=== PATIENT | male | born 1995 ===

== ENCOUNTER 2023-07-27 11:29 | Outpatient (AMB) | payer BC, SELFPAY ==
[2023-07-27 13:07] VITALS: BP 130/78; PULSE 76; TEMP 36.8; O2SAT 97; BMI 25.8
--- NOTE | 2023-07-27 13:07 | MHC.OFFWIV ---
Intake Vital Signs 07/27/23 13:07 Height 6 ft Weight 86.296 kg BMI 25.8 BP 130/78 Blood Pressure Location Lt brachial Position Sitting Pulse 76 Pulse Source Pulse Oximeter Temp 98.2 F Temp Source Temporal Artery Scan Pulse Oximetry (%) 97 Intake Visit Reasons: [employer] Lower back spasm/pain Intake Note: pt is here for c/o lower back back pain w/ spasms Patient Tobacco Use Status: Never used Tobacco Allergies No Known Allergies [No Known Allergies*] Allergy (Verified 07/27/23 13:08) Do you need a note to return to daycare/school/sports/work: Yes HPI HPI Comments History of Present Illness Details 1328 27-year-old male presents with atraumatic lower back pain worsening over the past few months, acutely worse this morning after waking up. Unsure if he hurt it while moving heavy things or playing basketball. He is followed by chiropractor last saw them earlier this week. Pain is worse when sitting down or lying down and better with ambulation. It is localized to the lower region bilaterally. Has not had pain like this before. Denies urinary/bowel incontinence/retention, numbness, tingling, changes in bowel habits in urinary habits. + bilateral lumbar paraspinous muscle spasms and tenderness throughout R>L This is likely lumbago versus lumbar paraspinous muscle spasms versus lumbar sprain or strain. Unlikely cauda equina, epidural abscess, cord compression. Other differentials include herniated disc, spinal stenosis Plan Toradol ( I gave 30 mg IM here in the left bicep tolerated well) , cyclobenzaprine, and patch. Educated patient on diagnosis and treatment plan, answered all question, patient verbalizes understanding. At this time patient will be discharged home, advised to return with new or worsening symptoms. Educated on worrisome signs and symptoms and when to return. At this time I feel comfortable discharge home. [facility] Social History Patient Tobacco Use Status: Never used Tobacco Review of Systems Const Details: Constitutional : No Weight loss, No Fever, No Chills, ENT/Mouth : No Hearing loss, No Ear Pain, No Nasal Congestion, No Sinus Pain, No Hoarseness, No sore throat, No Rhinorrhea, No Swallowing Difficulty Cardiovascular : No Chest Pain, No SOB Respiratory : No Cough, No Dyspnea Gastrointestinal : No Nausea, No Vomiting, No Diarrhea, No abdominal Pain, No Hematochezia, No Melena Genitourinary : No Dysuria, No Urinary Frequency, No Hematuria, No Urinary Incontinence, Musculoskeletal : positive back pain Skin : No Skin Lesions, No rash Neuro : No Weakness, No Numbness, No Paresthesias, no loss of bowel or bladder incontinence, no saddle anesthesia All systems reviewed & are unremarkable except as noted in HPI and below Physical Exam Vital Signs: vss Appearance: Alert.? Oriented X3.? No acute distress.? Head: Normocephalic, atraumatic, no step-offs or deformities Eyes: Pupils equal, round and reactive to light.? CVS: Normal heart rate and rhythm.? Pulses normal.? Respiratory: No respiratory distress.? Breath sounds normal.? Abdomen: Soft and nontender.? Skin: Skin warm and dry.? Normal skin color.? Normal skin turgor.? Extremities: No lower extremity edema.? No calf ttp. 5/5 strength to bilateral upper and lower extremities Back: No midline tenderness, no C-spine tenderness, full range of motion, no CVA tenderness bilaterally + bilateral lumbar paraspinous muscle spasms and tenderness throughout lumbar region R>L + straight leg raise on the right Neuro: Oriented X 3.? No motor deficit.? No sensory deficit. CN 2-12 intact . No saddle paresthesias. Ambulating appears uncomfortable slow gait. Assessment & Plan Assessment & Plan (1) Lumbar back pain: Code(s): M54.50 - Low back pain, unspecified Plan Take your medications as prescribed. If you were prescribed antibiotics today, it is important that you take your medication to their entirety, do not skip any doses, do not finish them early. Follow-up with your primary care provider this week. Return to the emergency department with new or worsening symptoms. Such as fevers, chills, chest pain, shortness of breath, nausea, vomiting, dizziness, headache, vision changes, lethargy In case of emergency call 911 Orders: Orders AMB Ketorolac Injection Today M54.50 - Low back pain, unspecified Medications: New lidocaine 4% (AsperFlex (lidocaine)) 1 patch topical DAILY PRN 15 ea 0RF pain ketorolac 10 mg PO Q8H PRN 15 tabs 0RF pain prednisone 40 mg (2 x 20 mg) PO DAILY 5 days 10 tabs 0RF ketorolac 30 mg IM ONCE 1 mL 0RF M54.50 - Low back pain, unspecified Coding Level of Care Code Est Pt Level 3 (81087) Diagnoses Lumbar back pain M54.50
== END 2023-07-27 13:35 | disposition home or self-care (01) ==
PROVIDERS: Visit Provider Physician Assistant
DX: M54.50 Low back pain, unspecified (principal)
CPT/HCPCS: 99213

== ENCOUNTER 2023-07-27 13:35 | Outpatient (REF) | payer BC, SELFPAY ==
--- NOTE | ~2023-07-27 | XR_ITS ---
EXAMINATION: XR LUMBOSACRAL SPINE CLINICAL INFORMATION: Low back pain COMPARISON: None available. TECHNIQUE: Three views of the lumbosacral spine. FINDINGS: The vertebral bodies and posterior elements are normal. There is mild narrowing cough L4-L5 intervertebral disc space and L5-S1 as well. The rest of disc spaces are preserved and the vertebral alignment is normal. The paraspinal soft tissues are normal. XR/XR lumbar spine 2-3V IMPRESSION: Narrowing cough L4-L5 and L5-S1 intervertebral disc spaces.
== END 2023-07-27 13:36 | disposition home or self-care (01) ==
LOC: HO.HMGCX 13:35
PROVIDERS: Visit Provider Physician Assistant
DX: M54.50 Low back pain, unspecified (principal)
CPT/HCPCS: 72100

== ENCOUNTER 2023-08-10 09:19 | Outpatient (AMB) | payer BC, SELFPAY ==
--- NOTE | 2023-08-10 09:00 | A.OFFPC_ITS ---
Vital Signs 08/10/23 09:01 Height 6 ft Weight 195 lb BMI 26.4 BP 124/86 Blood Pressure Location Rt brachial Position Sitting Pulse 75 Pulse Source Pulse Oximeter Pulse Oximetry (%) 98 Oxygen Delivery Method Room Air Intake Visit Reasons: Est Care/Back pain/Requesting Annual PE Intake Note: Pt is here today to est care/back pain and request PE Allergies No Known Allergies [No Known Allergies*] Allergy (Verified 08/10/23 09:02) Tobacco use date assessed: 08/10/23 Dental Screening Dental Screen Date: 08/10/23 Did you have a dental visit in the last 12 months?: Yes Did you have a dental problem in the last 6 months where you did not have access to dental care?: No Was dental information given to patient?: Patient has dentist HPI HPI Comments History of Present Illness Details Patient is a 27-year-old male here to establish care. He has a chief c omplaint of intermittent right lower back pain x3 months. He was seen in our walk-in clinic 2 weeks prior to this appointment for the same issue, where she was given a an x-ray which demonstrated possible trough narrowing. He states that the intensity of the pain changes based on whether he is standing still, sitting or moving. He has been using [id number] Motrin with some relief. He states that he feels the intermittent pain radiating down his right buttock and testicle. Denies nausea and vomiting, dizziness, recent fevers, dysuria or saddle numbness. He states that he has not had a primary care doctor and several years, and is motivated to stay in good health. [facility] Medical History (Updated 08/10/23 @ 11:02 by YANG Marcial) Encounter for routine adult physical exam with abnormal findings Lumbar back pain with radiculopathy affecting right lower extremity Family History (Updated 08/10/23 @ 09:05 by Kelle Obrien CMA) Father Substance use disorder Mother Substance use disorder Maternal Aunt Substance use disorder Maternal Uncle Substance use disorder Paternal Aunt Substance use disorder Paternal Uncle Substance use disorder Social History (Updated 08/10/23 @ 10:19 by YANG Marcial) Housing: House Patient Tobacco Use Status: Never used Tobacco e-Cigarette/Vaping Use: Never Used Substance Use Type: Marijuana service: No Current occupational status: employed Cognitive needs: No Hearing needs: No Vision needs: No Questionnaire PHQ-9 Over the last 2 weeks, how often have you been bothered by any of the following problems? 1. Little interest or pleasure in doing things: not at all 2. Feeling down, depressed, or hopeless: not at all 3. Trouble falling or staying asleep, or sleeping too much: not at all 4. Feeling tired or having little energy: not at all 5. Poor appetite or overeating: not at all 6. Feeling bad about yourself - or that you are a failure or have let yourself or your family down: not at all 7. Trouble concentrating on things, such as reading the newspaper or watching television: not at all 8. Moving or speaking so slowly that other people could have noticed. Or the opposite - being so fidgety or restless that you have been moving around a lot more than usual: not at all 9. Thoughts that you would be better off or of hurting yourself in some way: not at all Total score: 0 Depression Screening Interpretation: Negative Depression Screening Done: Yes 31442 - PHQ-9 Billing: Yes Source: Developed by Drs. Manjinder Macedo, Sidra Vick, Armani Miller and colleagues, with an educational fabian from [employer]. AUDIT C Alcohol Use Questionnaire (AUDIT-C) 1. How often do you have a drink containing alcohol?: Monthly or less 2. How many drinks containing alcohol do you have on a typical day when you are drinking?: 1 or 2 3. How often do you have six or more drinks on one occasion?: Never Total Score: 1 HILARIA-7 AMB Questionnaire HILARIA-7 Feeling nervous, anxious, or on edge: 0 = Not at all Not being able to stop or control worryin = Not at all Worrying too much about different things: 0 = Not at all Trouble relaxin = Not at all Being so restless that it is hard to sit still: 0 = Not at all Becoming easily annoyed or irritable: 0 = Not at all Feeling afraid as if something awful might happen: 0 = Not at all Total HILARIA-7 score (0-4 normal; 5-9 mild; 10-14 moderate; 15-21 severe): 0 Source: Developed by Drs. Manjinder Macedo, Sidra Vick, Armani Miller and colleagues, with an educational fabian from [employer]. HILARIA-7 Assessment Billing HILARIA-7 Assessment Tool: HILARIA-7 Assessment 96276 Review of Systems Const Details: Constitutional : No Weight loss, No Fever, No Chills, No Fatigue, No Malaise ENT/Mouth : No sore throat, No Rhinorrhea Eyes: No Eye Pain, No Swelling, No Redness Cardiovascular : No Chest Pain, No SOB, No Dyspnea on Exertion, No Orthopnea, No Edema, No Palpitations Respiratory : No Cough, No Sputum, No Wheezing Gastrointestinal : No Nausea, No Vomiting, No Diarrhea, No Constipation, No abdominal Pain, No Hematochezia, No Melena Genitourinary : No Dysuria, No Urinary Frequency, No Hematuria. Reports intermittent right testicle pain. Musculoskeletal : Reports intermittent lower back pain that radiates down buttocks and testicle. Skin : No Skin Lesions, No rash Neuro : No Weakness, No Numbness, No Dizziness, No Headache Psych : No Anxiety/Panic, No Depression Heme/Lymph: No Bruising, No Bleeding,No Lymphadenopathy Endocrine : No Polyuria, No Polydipsia All other systems reviewed and are negative Physical exam (Primary Care) Vital Signs: Last Vital Signs Pulse 75 08/10/23 09:01 BP 124/86 08/10/23 09:01 Pulse Ox 98 08/10/23 09:01 Oxygen Delivery Method Room Air 08/10/23 09:01 Care Plan Goal for BP management: Vitals have been reviewed and are stable BMI result Body Mass Index 26.4 Tobacco/Smoking Status: Tobacco use Status Tobacco use date assessed 08/10/23 08/10/23 09:03 Patient Tobacco Use Status Never used Tobacco 08/10/23 09:01 e-Cigarette/Vaping Use Never Used 08/10/23 09:03 Depression Screening Interpretation: Negative Const General: cooperative, healthy appearing and no acute distress Orientation/consciousness: patient oriented x3 Limitations: no limitations HENMT Head: Yes normal to inspection and Yes normocephalic Ears: TM normal on the left and other (Impacted cerumen in the right ear) General nose exam: Normal external nose present Face and sinus: Yes sinuses nontender and Yes face symmetric Mouth: Normal oral and palatal mucosa present Eyes General: appearance normal, both eyes and all related structures Direct Ophthalmoscopy: normal light reflex and no photophobia Neck Neck: Yes normal visual inspection and Yes no lymphadenopathy Chest Chest palpation & inspection: normal inspection of the chest Resp Auscultation: clear to auscultation bilaterally Cardio Rate: regular rate Rhythm: regular rhythm Heart sounds: S1 normal heart sound present and S2 normal heart sound present Peripheral pulses: Peripheral pulses 2+ throughout GI Inspection: Yes normal to inspection Auscultation: normal bowel sounds General: Yes no CVA tenderness Male General Exam: No edema and No erythema Scrotum: cremasteric reflex present, not edematous, not erythematous, no masses, no scrotal swelling and other Back/Spine/Pelvis Back: no CVA tenderness Cervical Spine: normal cervical lordosis Thoracic/Lumbar Spine: straight leg raise positive right at 40 degrees Sacroiliac joints: on the right tender to palpation Skin General skin exam: no rashes or lesions noted Neuro General: patient oriented x3, gait normal and CN's II-XI intact bilaterally Motor exam (neuro): 5/5 motor strength present throughout Psych Affect: normal affect Attitude: cooperative Insight: Good insight present (Psych) Judgement: Good judgement present (Psych) Results Reviewed Results Reviewed: Will call patient with lab results. Assessment and Plan Assessment & Plan (1) Encounter for routine adult physical exam with abnormal findings: Code(s): Z00.01 - Encounter for general adult medical examination with abnormal findings Plan: Will draw CBC, CMP, Lipid profile, TSH, T4, and UA. WIll follow up with results. Patient will have repeat physical in 1 year. (2) Lumbar back pain with radiculopathy affecting right lower extremity: Code(s): M54.16 - Radiculopathy, lumbar region Plan: Patient was seen in the walk-in 2 weeks prior where he had an x-ray of this lumbar. Demonstrated possible narrowing of draw, will order MRI for more detail. Patient has been instructed in the meantime to rest and not participate in any heavy lifting or movement. Will prescribe meloxicam to be taken as directed for lower back pain relief. Depending on MRI results patient will see [facility]. Patient is agreeable to this plan. (3) Right testicular pain: Code(s): N50.811 - Right testicular pain Plan: Patient has intermittent right testicular pain that he notices when he also has back pain. Denies dysuria. Cremasteric reflex was present. Will order ultrasound. Orders: Orders Comprehensive Met. Panel Today Z00.00 - Encounter for general adult medical examination without abnormal findings TSH reflex Free T4 Today Z00.00 - Encounter for general adult medical examination without abnormal findings UA CC w/rflx Micro + Cult Today Z00.00 - Encounter for general adult medical examination without abnormal findings Complete Blood Count Auto Diff Today Z00.00 - Encounter for general adult medical examination without abnormal findings MR lumbar spine wo con Today M54.16 - Radiculopathy, lumbar region Lipid Panel Today Z00.00 - Encounter for general adult medical examination without abnormal findings US scrotum Today N50.819 - Testicular pain, unspecified AMB Cerumen Removal Today H61.21 - Impacted cerumen, right ear Medications: New meloxicam 15 mg PO DAILY 14 tabs 0RF Review Flu Vaccine not done: patient reason Coding Level of Care Code Est Pt Level 4 (99376) Diagnoses Encounter for routine adult physical exam with abnormal findings Z00.01 Lumbar back pain with radiculopathy affecting right lower extremity M54.16 Right testicular pain N50.811 Additional Codes HILARIA-7 Assessment Billing - HILARIA-7 Assessment Tool: HILARIA-7 Assessment [id number] ([id number]) Time Spent (min) 30
[2023-08-10 09:01] VITALS: BP 124/86; PULSE 75; O2SAT 98; BMI 26.4
== END 2023-08-10 11:17 | disposition home or self-care (01) ==
PROVIDERS: PCP Nurse Practitioner Primary Care; Visit Provider Nurse Practitioner Primary Care
DX: Z00.01 Encounter for general adult medical examination with abnormal findings (principal); M54.16 Radiculopathy, lumbar region; N50.811 Right testicular pain
CPT/HCPCS: 99214

== ENCOUNTER 2023-08-10 09:55 | Outpatient (REF) | payer BC, SELFPAY ==
[2023-08-10 13:38] LABS: Appearance Urine Clear; Color Urine Yellow; Glucose Urine UA Negative (Negative); Leukocyte Esterase Urine Negative (Negative); Nitrite Urine Negative (Negative); PH 6.5 (5.0-9.0); Specific Gravity - Urine 1.015 (1.005-1.025); Urine Blood Negative (Negative); Urine Ketones Negative (Negative); Urine Protein Negative (Neg-Trace)
[2023-08-10 13:44] LABS: MANUAL DIFF FLAG NO
[2023-08-10 13:50] LABS: Basophils Percent Auto 0.7 % (0-2); Eosinophils Absolute Auto 0.3 X10*3/uL (0.0-0.4); Eosinophils Percent Auto 5.4 % (0-4); Hematocrit 44.7 % (42.0-52.0); Imm Gran Abs Auto 0.02 X10*3/uL (0.00-0.03); Imm Gran Pct Auto 0.3 % (0.0-0.4); Lymphocytes Percent Auto 32.2 % (20-40); Mean Corpuscular HGB Conc 33.6 g/dl (31.0-36.0); Mean Corpuscular Hemoglobin 30.1 pg (27.0-33.0); Mean Corpuscular Volume 89.8 fL (80.0-98.0); Mean Platelet Volume 11.5 fL (9.4-12.4); Monocytes Absolute Auto 0.6 X10*3/uL (0.1-1.2); Monocytes Percent Auto 9.5 % (2-11); Neutrophils Absolute Auto 3.2 x10*3/uL (2.0-8.3); Neutrophils Percent Auto 51.9 % (45-73); Platelet Count 171 X10*3/uL (160-400); Red Blood Count 4.98 X10*6/uL (4.60-5.80); Red Cell Distribution Width 12.8 % (11.0-16.0); White Blood Count 6.1 X10*3/uL (4.8-10.8)
[2023-08-10 14:21] LABS: Alanine Aminotransferase 63 U/L (0-40); Albumin Level 4.7 g/dL (3.5-5.0); Alkaline Phosphatase 32 U/L (39-117); Anion Gap 11 (12-20); Aspartate Amino Transferase 29 U/L (5-37); Bilirubin Total 0.6 mg/dL (0.0-1.0); Blood Urea Nitrogen 17 mg/dL (9-16); Calcium 9.6 mg/dL (8.4-10.2); Carbon Dioxide 29 mmol/L (22-29); Chloride 105 mmol/L (96-108); Cholesterol 154 mg/dL (<200); Estimated Glomerular Filt Rate > 60; Glucose Random 83 mg/dL (60-115); HDL Cholesterol 54 mg/dL (>40); LDL Cholesterol Calculated 94 mg/dL (<100); Potassium 4.1 mmol/L (3.3-5.1); Sodium 141 mmol/L (135-145); TSH reflex Free T4 1.84 uIU/mL (0.32-4.0); Total Protein 7.5 g/dL (6.5-8.0); Triglycerides 33 mg/dL (<150)
== END 2023-08-10 09:56 | disposition home or self-care (01) ==
LOC: HO.HMGCLDS 09:55
PROVIDERS: PCP Nurse Practitioner Primary Care; Visit Provider Nurse Practitioner Primary Care
DX: Z00.00 Encounter for general adult medical examination without abnormal findings (principal); Z13.29 Encounter for screening for other suspected endocrine disorder; Z13.0 Encounter for screening for diseases of the blood and blood-forming organs and certain disorders involving the immune mechanism; Z13.220 Encounter for screening for lipoid disorders
CPT/HCPCS: 36415; 80053; 80061; 81003; 84443; 85025

== ENCOUNTER 2023-11-09 14:00 | Outpatient (RCR) | payer BC, OTHER, SELFPAY ==
--- NOTE | 2023-09-26 09:40 | MHC.PT.EP ---
[facility] [place] Office [place] Office [place] Office [address] Valentina Shaffer [address] [phone] F: [phone] F: [phone] F: [phone] F: [phone] Physical Therapy Plan of Care Date of Evaluation: 09/26/23 Date of Surgery: Diagnosis: RADICULOPATHY, LUMBAR REGION Assessment: 28 YO [place] [address] EXACERBATION OF HIS LUMBAR REGION RADICULOPATHY AFTER LIFTING OBJECTS AND LANDING HARD WHILE PLAYING BASKETBALL. OF IMPORTANCE, HE APPEARS TO BE COMPENSATING FOR ROM/ STRENGTH DEFICITS LEFT LE W H/O Lt ACL REPAIR 2016 WITH ALL SIMUL FUNCTIONAL TASKS. 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 OBJECTIVE FINDINGS: SOFT TISSUE RESTRICTIONS W DF/ HIP IR AND ER/ ADD; DENIES RADICULAR SXS/ MOTOR DEFICITS, HE HAS DECR TRUNK FLEX, RESIDUAL LUMBOPELVIC AND Lt LE STRENGTH DEFICITS, DECR POSTURAL AWARENESS(SACRAL SITTER AND DECR SQUAT MECH), HYPERLORDOTIC LUMBAR TENDENCIES , AND FLUCTUATING Rt LUMBOSACRAL PAIN. THE Pt IS MOTIVATED FOR PT, DEV HEP, EASING PAIN AND EDEMA, AND MAXIMIZING FUNCTIONAL INDEPENDENCE. THE Pt IS MOTIVATED FOR PT, TO GUIDE HIM IN DEV HEP, EASING PAIN AND SELF PREVENTION/ MGMT TECHN, AND MAXIMIZING FUNCTIONAL INDEPENDENCE WITH REDUCED RISK OF RE-INJURY. 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 Manual therapy to restore motion and function. Therapeutic exercise to improve strength and flexibility. Neuromuscular re-education for posture and balance. Therapeutic activities to return to functional activities of daily living. Electronically signed by: ZI CHRISTINE PT Please sign and return to therapist. Thank you for your referral.
--- NOTE | 2023-12-18 14:37 | MHC.PT.DC ---
[facility] [place] Office [place] Office [place] Office [address] Valentina Shaffer [address] [phone] F: [phone] F: [phone] F: [phone] F: [phone] Physical Therapy Discharge Report Diagnosis: RADICULOPATHY, LUMBAR REGION Date of Surgery: Date of Evaluation: 09/26/23 Date of Discharge: 12/18/23 Treatments to Date: 7 Cancellations to Date: 1 No Shows to Date: 2 Discharge Status: Achieved Goals Improved Function Independent with HEP Discharge Summary: JINNY HAS PROGRESSED NICELY IN PT- HE IS INDEP W HIS HEP AND HIS LBP HAS RELATIVELY RESOLVED- HE IS INDEP W SX MANAGEMENT AND HAS BEEN ABLE TO RESUME HIS REGULAR FITNESS ROUTINE W/O EXACERBATING SXS. JINNY MET HIS PT GOALS AT THIS TIME AND IS D/C W A THOROUGH HEP. Electronically signed by: Rahel Spring,PT Please sign and return to therapist. Thank you for your referral.
== END 2023-12-18 14:38 | disposition home or self-care (01) ==
LOC: HO.PT 14:00
PROVIDERS: PCP Nurse Practitioner Primary Care; Visit Provider Nurse Practitioner Primary Care
DX: M54.16 Radiculopathy, lumbar region (principal)
CPT/HCPCS: 97110; 97140; 97162; 97530

== ENCOUNTER 2024-04-07 13:20 | Outpatient (AMB) | payer BC, SELFPAY ==
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
[2024-04-07 13:34] VITALS: BP 118/80; PULSE 67; O2SAT 98; BMI 25.9
== END 2024-04-07 14:43 | disposition home or self-care (01) ==
PROVIDERS: PCP Nurse Practitioner Primary Care; Visit Provider Nurse Practitioner Primary Care
DX: Z00.00 Encounter for general adult medical examination without abnormal findings (principal); F41.1 Generalized anxiety disorder
CPT/HCPCS: 96127; 99395

== ENCOUNTER 2024-07-03 11:46 | Outpatient (AMB) | payer BC, SELFPAY ==
[2024-07-03 11:51] VITALS: BP 110/70; PULSE 58; O2SAT 98; BMI 24.7
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
== END 2024-07-03 13:47 | disposition home or self-care (01) ==
PROVIDERS: PCP Nurse Practitioner Primary Care; Visit Provider Internal Medicine
DX: F41.1 Generalized anxiety disorder (principal)

== ENCOUNTER → 2024-07-03 11:46 | Outpatient (BNVA) | payer OTHER, SELFPAY | PROVIDERS: PCP Nurse Practitioner Primary Care; Visit Provider Internal Medicine ==

== ENCOUNTER 2024-08-31 13:06 | Emergency (ER) | payer BC, SELFPAY ==
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
[2024-08-31 13:33] VITALS: BP 137/75; PULSE 85; RESP 16; TEMP 37; O2SAT 99; BMI 25.3
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
[2024-08-31 15:58] VITALS: BP 134/78; PULSE 91; RESP 19; TEMP 36.6; O2SAT 99
[2024-08-31 16:09] VITALS: BP 134/78; PULSE 91; RESP 19; TEMP 36.6; O2SAT 99
== END 2024-08-31 16:09 | disposition home or self-care (01) ==
PROVIDERS: Emergency Provider Emergency Medicine Emergency Medical Services
DX: S05.12XA Contusion of eyeball and orbital tissues, left eye, initial encounter (principal); R51.9 Headache, unspecified; Y04.2XXA Assault by strike against or bumped into by another person, initial encounter; Y93.89 Activity, other specified; Y92.89 Other specified places as the place of occurrence of the external cause; Y99.8 Other external cause status
CPT/HCPCS: 70450; 70486; 72125; 99283; 99284

== ENCOUNTER 2024-10-17 08:15 | Outpatient (AMB) | payer BC, SELFPAY ==
--- NOTE | 2024-10-17 08:51 | MHC.OFFWIV ---
Intake Vital Signs 10/17/24 08:58 Height 6 ft Weight 84.822 kg BMI 25.4 BP 122/80 Blood Pressure Location Rt brachial Position Sitting Pulse 66 Pulse Source Pulse Oximeter Temp 97.6 F Temp Source Oral Pulse Oximetry (%) 98 Oxygen Delivery Method Room Air Intake Visit Reasons: EP-?sinus infection, sore throat, running nose Intake Note: Patient here for sinus pressure, runny nose, sore throat in morning and at night which started about 1 week ago. Patient Tobacco Use Status: Never used Tobacco Allergies No Known Allergies [No Known Allergies*] Allergy (Verified 10/17/24 08:59) Do you need a note to return to daycare/school/sports/work: No HPI HPI Comments History of Present Illness Details 29 year old male presents w/ sinus congestion, thick nasal discharge X 1 week. Denies fevers, chills, cp, sob, nausea, vomiting, headache, vision changes, sick contacts. PE- + pressure to face w/ forward bending Hx and pe concerning for sinusitis. Patient refusing viral testing flu/covid/ rsv. No signs of pna, meningitis, encephalitis. Plan- augmentin, prednsione. Advised to return w. new or worsening sx. [facility] Medical History Encounter for routine adult physical exam with abnormal findings Lumbar back pain with radiculopathy affecting right lower extremity Surgical History No pertinent past surgical history Family History Father Substance use disorder Mother Substance use disorder Maternal Aunt Substance use disorder Maternal Uncle Substance use disorder Paternal Aunt Substance use disorder Paternal Uncle Substance use disorder Social History Housing: House Patient Tobacco Use Status: Never used Tobacco e-Cigarette/Vaping Use: Never Used Substance Use Type: Marijuana service: No Current occupational status: employed Cognitive needs: No Hearing needs: No Vision needs: No Review of Systems Const All systems reviewed & are unremarkable except as noted in HPI and below Physical Exam Vital Signs: Last Vital Signs Temp 97.6 F 10/17/24 08:58 Pulse 66 10/17/24 08:58 BP 122/80 10/17/24 08:58 Pulse Ox 98 10/17/24 08:58 Oxygen Delivery Method Room Air 10/17/24 08:58 BMI result Body Mass Index 25.4 vss Appearance: Alert.? Oriented X3.? No acute distress.? Head: Normocephalic, atraumatic, no step-offs or deformities Eyes: Pupils equal, round and reactive to light.? CVS: Normal heart rate and rhythm.? Pulses normal.? Respiratory: No respiratory distress.? Breath sounds normal.? Abdomen: Soft and nontender.? Skin: Skin warm and dry.? Normal skin color.? Normal skin turgor.? Extremities: No lower extremity edema.? No calf ttp. 5/5 strength to bilateral upper and lower extremities Back: No midline tenderness, no C-spine tenderness, full range of motion, no CVA tenderness bilaterally Neuro: Oriented X 3.? No motor deficit.? No sensory deficit. CN 2-12 intact Assessment & Plan Assessment & Plan (1) Upper respiratory tract infection: Code(s): J06.9 - Acute upper respiratory infection, unspecified Plan: Take your medications as prescribed. If you were prescribed antibiotics today, it is important that you take your medication to their entirety, do not skip any doses, do not finish them early. Follow-up with your primary care provider this week. Return to the emergency department with new or worsening symptoms. In case of emergency call 911 (2) Acute bacterial sinusitis: Code(s): J01.90 - Acute sinusitis, unspecified; B96.89 - Other specified bacterial agents as the cause of diseases classified elsewhere Plan Take your medications as prescribed. If you were prescribed antibiotics today, it is important that you take your medication to their entirety, do not skip any doses, do not finish them early. Follow-up with your primary care provider this week. Return to the emergency department with new or worsening symptoms. In case of emergency call 911 Orders: Orders SARS-CoV2/FLU/RSV Today J06.9 - Acute upper respiratory infection, unspecified Medications: New amoxicillin-pot clavulanate 875-125 mg 1 tab PO BID 10 days 20 tabs 0RF prednisone 40 mg (2 x 20 mg) PO DAILY 5 days 10 tabs 0RF Coding Level of Care Code Est Pt Level 3 (53011) Diagnoses Upper respiratory tract infection J06.9 Acute bacterial sinusitis J01.90; B96.89
[2024-10-17 08:58] VITALS: BP 122/80; PULSE 66; TEMP 36.4; O2SAT 98; BMI 25.4
== END 2024-10-17 09:56 | disposition home or self-care (01) ==
PROVIDERS: PCP Internal Medicine; Visit Provider Physician Assistant
DX: J06.9 Acute upper respiratory infection, unspecified (principal); J01.90 Acute sinusitis, unspecified; B96.89 Other specified bacterial agents as the cause of diseases classified elsewhere

== ENCOUNTER 2025-07-07 08:23 | Outpatient (REF) | payer OTHER, SELFPAY ==
[2025-07-07 12:03] LABS: Chlamydia pneumoniae PCR Not Detected (Not Detect.); Coronavirus 229E PCR Not Detected (Not Detect.); Coronavirus HKU1 PCR Not Detected (Not Detect.); Coronavirus NL63 PCR Not Detected (Not Detect.); Coronavirus OC43 PCR Not Detected (Not Detect.); RSV PCR Not Detected (Not Detect.); Rhino/Enterovirus PCR Detected (Not Detect.)
[2025-07-07 12:15] LABS: SARS-CoV-2 PCR Not Detected (Not Detect.)
[2025-07-07 12:16] LABS: Influenza A H1 PCR Not Detected (Not Detect.); Influenza A H1-2009 PCR Not Detected (Not Detect.); Influenza A H3 PCR Not Detected (Not Detect.)
== END 2025-07-07 08:24 | disposition home or self-care (01) ==
LOC: HO.LNP 08:23
PROVIDERS: PCP Internal Medicine; Visit Provider Physician Assistant Medical
DX: R09.81 Nasal congestion (principal); J02.9 Acute pharyngitis, unspecified; R13.10 Dysphagia, unspecified; M79.10 Myalgia, unspecified site
CPT/HCPCS: 87633

== ENCOUNTER 2025-07-07 08:23 | Outpatient (AMB) | payer OTHER, SELFPAY ==
[2025-07-07 08:25] VITALS: BP 120/78; PULSE 80; TEMP 36.5; O2SAT 99; BMI 27.0
--- NOTE | 2025-07-07 08:25 | MHC.OFFWIV ---
Intake Vital Signs 07/07/25 08:25 Height 6 ft Weight 199 lb BMI 27.0 BP 120/78 Blood Pressure Location Lt brachial Position Sitting Pulse 80 Pulse Source Pulse Oximeter Temp 97.7 F Temp Source Oral Pulse Oximetry (%) 99 Oxygen Delivery Method Room Air Intake Visit Reasons: ep sore throat painful to swallow Intake Note: pt is here for sore throat since yesterday Patient Tobacco Use Status: Never used Tobacco Allergies No Known Allergies (No Known Allergies*) Allergy (Verified 07/07/25 08:25) Do you need a note to return to daycare/school/sports/work: Yes HPI HPI Comments History of Present Illness Details History of Present Illness - The patient is a 29-year-old male presenting with a sore throat and body aches. - Symptoms began suddenly last night, characterized by severe throat pain and difficulty swallowing. - He reports mild congestion, but denies significant cough or fever. - The patient has not taken any medications and prefers antibiotics today. - He denies fever, chills, chest pain, SOB, abd pain, or n/v/d. - He has no sick contacts or recent travel. Physical Exam General: Cooperative, healthy appearing, comfortable, no acute distress and well developed Orientation: Patient oriented x3 Limitations: No limitations Head: Normal to inspection. Ears: Hearing grossly normal bilaterally Nose: Normal external nose present. Face and sinus: Normal facial exam, slight pressure reported Throat: Oropharynx is erythematous with no exudates. Uvula is midline. Neck: Normal visual inspection, Yes full ROM. No lymphadenopathy noted. Respiratory: Normal respiratory effort and able to speak in complete sentences. Clear to auscultation bilaterally. No w/r/r noted. Cardiovascular: Regular rate and rhythm. Normal S1 and S2. No m/r/g noted. GI: Normal to inspection. Soft to palpation and nontender Skin: No rashes or lesions noted Patient was informed and verbally consented to the use of an ambient scribe for clinic note documentation during this visit. [facility] Medical History Encounter for routine adult physical exam with abnormal findings Lumbar back pain with radiculopathy affecting right lower extremity Surgical History No pertinent past surgical history Family History Father Substance use disorder Mother Substance use disorder Maternal Aunt Substance use disorder Maternal Uncle Substance use disorder Paternal Aunt Substance use disorder Paternal Uncle Substance use disorder Social History Housing: House Patient Tobacco Use Status: Never used Tobacco e-Cigarette/Vaping Use: Never Used Substance Use Type: Marijuana service: No Current occupational status: employed Cognitive needs: No Hearing needs: No Vision needs: No Review of Systems Const All systems reviewed & are unremarkable except as noted in HPI and below Physical Exam Vital Signs: Last Vital Signs Temp 97.7 F 07/07/25 08:25 Pulse 80 07/07/25 08:25 BP 120/78 07/07/25 08:25 Pulse Ox 99 07/07/25 08:25 Oxygen Delivery Method Room Air 07/07/25 08:25 BMI result Body Mass Index 27.0 Results AMB Rapid Strep AMB Rapid Strep Negative Last Edit by Lew Mora CMA on 07/07/25 08:42 Results Reviewed Results Reviewed: Laboratory Last Values Strep Scn Rapid Clinic Negative 07/07/25 08:41 Assessment & Plan Assessment & Plan (1) Sore throat: Code(s): J02.9 - Acute pharyngitis, unspecified Plan Most likely strep vs viral illness vs covid vs flu vs RSV Rapid strep was negative plan - A comprehensive respiratory panel will be conducted to rule out influenza, COVID-19, and other viral infections. - The patient was advised that antibiotics are not typically indicated for viral infections, but can be considered if bacterial infection is confirmed. - tylenol or motrin as needed for pain or fever - can start PCN 500 mg BID per pts request but advised to stop if the resp panel is positive - will call with the results - follow up with PCP Orders: Orders AMB Rapid Strep Screen Today Z13.9 - Encounter for screening, unspecified Resp Pathogen Panel - [facility] Today J06.9 - Acute upper respiratory infection, unspecified Medications: New penicillin V potassium 500 mg PO BID 20 tabs 0RF 10 days Coding Level of Care Code Est Pt Level 3 (27596) Diagnoses Sore throat J02.9
--- OUTSIDE RECORDS SUMMARY | 2025-07-07 08:37 | XMS_ITS ---
Author Name [facility] Organization Unknown History of Medication Use Medication Directions Dispensed Refills Start Date End Date Stat fluticasone (FloNASE) 50 mcg/spray nasal spray 2 sprays into each nostril 2 times a day. 02/02/2025 active Problems Problem Status Onset Date Problem Type Date of Resoluti on Source Deviated nasal septum active EncounterDiagnosisAct [facility] Hypertrophy of nasal turbinates active EncounterDiagnosisAct [facility] Encounters Encounter Type Encounter Reason Primary Diagnosis Location Date Ambulatory Nasal Congestion Nasal Congestion [facility] 05/11/2025 Ambulatory Nasal Congestion Nasal Congestion [facility] 02/02/2025 Care Team Organization Name Specialty Phone Email Start Date End [facility] 02/02/2025 06/09/2025 [place] 12/11/2024
--- OUTSIDE RECORDS SUMMARY | 2025-07-07 08:37 | XMS_ITS | Clinical Summary ---
Author Organization [facility] Address [address] [place] [id number] Care Team Providers Care Handle Turner Name Role Phone Unavailable Primary Care Provider Unavailabl e Allergies No known active allergies Medications fluticasone (FloNASE) 50 mcg/spray nasal sprayIndication s:Hypertrophy of nasal turbinates 2 sprays into each nostril 2 times a day. 1 each 3 02/02/2025 Active Active Problems No known active problems Encounters Date Type Department Care Team Description 05/11/2025 7:45 AM EDT Office Visit [facility] [address] [phone] Wilbert Stewart MD Deviated nasal septum (Primary Dx); Hypertrophy of nasal turbinates 04/06/2025 Telephone [facility] [address] [phone] Wilbert Stewart MD from Last 3 Months Social History Tobacco Use Types Packs/Day Years Used Date Smoking Tobacco: Never Passive Smoke Exposure: Never Smokeless Tobacco: Never Tobacco Cessation:Counseling Given: Not Answered Alcohol Use Standard Drinks/Week Comments Yes 0 (1 standard drink = 0.6 oz pur e alcohol) Sex and Gender Information Value Date Recorded Sex Assigned at Male 12/11/2024 3:36 PM EDT Legal Sex Male 3:27 PM EDT Gender Identity Male 12/11/2024 3:36 PM EDT Sexual Orientation Heterosexual (straight) 12/11 3:36 PM EDT Last Filed Vital Signs Vital Sign Reading Time Taken Comments Blood Pressure - - Pulse - - Temperature - - Respiratory Rate - - Oxygen Saturation - - Inhaled Oxygen Concentration - - Weight 88.5 kg (195 lb) 05/11/2025 8:13 AM EDT Height 182.9 cm (6') 05/11/2025 8:13 AM EDT Body Mass Index 26.45 05/11/2025 8:13 AM EDT Plan of Treatment Upcoming Encounters Date Type Department Care Team (Late st Contact Info) Description 09/09/2025 8:30 AM EST Appointment [facility] [place] [address] [place] [address] Wilbert Stewart MD [address] [place] [id number] 09/30/2025 7:00 AM EST Appointment [facility] [address] [place] [address] Wilbert Stewart MD [address] [place] [address], [place] [address] Health Maintenance Due Date Last Done Comments Hepatitis C Virus Screening 1995 HIV Screening 2008 DTaP/Tdap/Td Vaccines (1 - Tdap) 2014 Hepatitis B Vaccines (1 of 3 - 19+ 3-dose series) 2014 Influenza Vaccine 04/24/2025 COVID-19 Vaccine ( - 2023-2 5 season) 2025 HPV Vaccines (No Doses Required) Completed Pneumococcal Vaccine: Pediat mina (0-5 Years) and At-Risk Patients (6 to 49 Years) Aged Out No longer eligible b ased on patient's age to complete this topic Insurance [facility]
== END 2025-07-07 09:01 | disposition home or self-care (01) ==
PROVIDERS: PCP Internal Medicine; Visit Provider Physician Assistant Medical
DX: Z13.9 Encounter for screening, unspecified (principal); J02.9 Acute pharyngitis, unspecified

== ENCOUNTER 2025-07-31 13:45 | Outpatient (REF) | payer OTHER, SELFPAY ==
--- NOTE | ~2025-07-31 | XR_ITS ---
EXAMINATION: XR HAND, LEFT CLINICAL INFORMATION: S60.219A - Contusion of unspecified wrist, initial encounter COMPARISON: None available. TECHNIQUE: PA, lateral, and oblique views of the left hand. FINDINGS: There is a bony exostosis in the region of the ulnar side of the metaphysis of the distal radius. There is longitudinal lucency in the region of the sigmoid notch of radius extending to the articular surface. There is also a longitudinal lucency through the central region of the distal radius trochanter toward the base of the radial styloid. No other suspicious areas are seen. XR/XR hand LT min 3V IMPRESSION: Possible nondisplaced fractures versus prominent trabecular pattern in the distal radius. If there is concern for a fracture, consider CT. Electronically signed by: Wild Cerna MD 07/31/2025 02:26 PM MIKE THOMAS
== END 2025-07-31 13:46 | disposition home or self-care (01) ==
LOC: HO.HMGCX 13:45
PROVIDERS: PCP Internal Medicine; Visit Provider Physician Assistant
DX: S52.502A Unspecified fracture of the lower end of left radius, initial encounter for closed fracture (principal); W13.2XXA Fall from, out of or through roof, initial encounter; Y92.69 Other specified industrial and construction area as the place of occurrence of the external cause; Y99.0 Civilian activity done for income or pay
CPT/HCPCS: 73130; 99212

== ENCOUNTER 2025-07-31 13:45 | Outpatient (AMB) | payer OTHER, SELFPAY ==
[2025-07-31 13:51] VITALS: BP 110/72; PULSE 78; TEMP 36.7; O2SAT 98; BMI 26.6
--- NOTE | 2025-07-31 13:51 | AM.OFFWIN_ITS ---
Intake Vital Signs 07/31/25 13:51 Height 6 ft Weight 196 lb BMI 26.6 BP 110/72 Blood Pressure Location Rt brachial Position Sitting Pulse 78 Pulse Source Pulse Oximeter Temp 98.1 F Temp Source Oral Pulse Oximetry (%) 98 Oxygen Delivery Method Room Air Intake Visit Reasons: ep wrist injury -wc Intake Note: pt presents with work related injury, c/o LT wrist and LT hand pain after falling off a roof this morning. Patient Tobacco Use Status: Never used Tobacco Allergies No Known Allergies (No Known Allergies*) Allergy (Verified 07/31/25 13:55) Do you need a note to return to daycare/school/sports/work: Yes HPI HPI Comments History of Present Illness Details This is a 29-year-old male with no stated past medical history presenting for evaluation of a work place injury that occurred at approximately 10:00 a.m. today. 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 Patient was on top of a first story house this morning when he slipped and fell 6-8 feet off the roof onto the ground. Patient believes he fell onto his outstretched left hand. There was no head injury or loss of consciousness as a result of this fall. Patient is complaining of pain in his distal left forearm in the thenar eminence of the left hand. Patient has not taken any medication for treatment of his discomfort. He denies any previous injury to his left upper extremity or left hand. [facility] Medical History Encounter for routine adult physical exam with abnormal findings Lumbar back pain with radiculopathy affecting right lower extremity Surgical History No pertinent past surgical history Family History Father Substance use disorder Mother Substance use disorder Maternal Aunt Substance use disorder Maternal Uncle Substance use disorder Paternal Aunt Substance use disorder Paternal Uncle Substance use disorder Social History Housing: House Patient Tobacco Use Status: Never used Tobacco e-Cigarette/Vaping Use: Never Used Substance Use Type: Marijuana service: No Current occupational status: employed Cognitive needs: No Hearing needs: No Vision needs: No Review of Systems Const All systems reviewed & are unremarkable except as noted in HPI and below Reports no additional complaints and Denies frequent falls Musc Denies deformity, Reports arthralgias and Reports other (Pain in the left wrist and left hand) Skin/Breast Reports system reviewed and no additional complaints, except as documented and Denies lesions Neuro Reports no additional complaints and Denies frequent falls Psych Reports no additional complaints Endo Reports no additional complaints Physical Exam Vital Signs: Last Vital Signs Temp 98.1 F 07/31/25 13:51 Pulse 78 07/31/25 13:51 BP 110/72 07/31/25 13:51 Pulse Ox 98 07/31/25 13:51 Oxygen Delivery Method Room Air 07/31/25 13:51 BMI result Body Mass Index 26.6 Const General: cooperative, healthy appearing, comfortable, no acute distress, well developed, alert, awake and Physically active Nutritional Appearance: average body habitus Orientation/consciousness: patient oriented x3 Limitations: no limitations Skin General skin exam: no rashes or lesions noted Trauma: no lacerations or abrasions Neuro General: patient oriented x3 Extrem Left upper extremity: normal to inspection, normal capillary refill, no joint enlargement, wrist (Pain to palpation distal radius, decreased ROM with supination, pronation ) and hand (Discomfort to palpation of the thenar eminence of the left hand) Details: normal capillary refill, neuromotor exam normal, neurosensory exam normal and tenderness (thenar eminence) Location: of the palm; ROM limited, no cyanosis and no edema Psych Appearance: grossly normal Mental Status: mental status grossly normal Insight: Good insight present (Psych) Judgement: Good judgement present (Psych) Results Reviewed Results Reviewed: Imaging is reviewed. There is a possible nondisplaced fracture in the distal radius, CT imaging is recommended. Assessment & Plan Assessment & Plan (1) Left radial fracture: Comment: Radiology reveals a possible nondisplaced fracture versus prominent trabecular pattern in the distal radius. CT imaging is recommended. Patient will be referred to orthopedics however patient is aware he must go through his HR department for workman's compensation approval. Code(s): S52.92XA - Unspecified fracture of left forearm, initial encounter for closed fracture Qualifiers: Encounter type: initial encounter Radius location: distal Fracture type: closed Fracture morphology: unspecified fracture morphology Qualified Code(s): S52.502A - Unspecified fracture of the lower end of left radius, initial encounter for closed fracture Plan: A pre made wrist splint with thumb spica is placed on the left wrist and patient will be referred to orthopedics for further evaluation and care. Patient will be discharged home with Naprosyn and Percocet. Orders: Orders XR wrist LT min 3V Today S60.212A - Contusion of left wrist, initial encounter Referrals Orthopedics Referral S52.502A - Unspecified fracture of the lower end of left radius, initial encounter for closed fracture Medications: New naproxen (Naprosyn) 500 mg PO BID 20 tabs 0RF oxycodone-acetaminophen 5-325 mg (Percocet) Partial Fill upon patient request. 1 tab PO Q6H PRN 10 tabs 0RF pain Coding Level of Care Code Est Pt Level 4 (62706) Diagnoses Closed fracture of distal end of left radius, unspecified fracture morphology, initial encounter S52.502A Encounter type: initial encounter Radius location: distal Fracture type: closed Fracture morphology: unspecified fracture morphology Time Spent (min) 30
--- OUTSIDE RECORDS SUMMARY | 2025-07-31 15:47 | XMS_ITS | Clinical Summary ---
Author Organization [facility] Address [address] [place] [address] Care Team Providers Care Hair Spring Winder Name Role Phone Unavailable Primary Care Provider [...] Visit [facility] [address], [place] [address] Wilbert Stewart MD Deviated nasal septum (Primary Dx); Hypertrophy of nasal turbinates from Last 3 Months Social History Tobacco [...] 05/11/2025 8:13 AM EDT Plan of Treatment Health Maintenance Due Date Last Done Comments Hepatitis C Virus Screening 1995 HIV Screening 2008 DTaP/Tdap/Td Vaccines (1 - Tdap) 2014 Hepatitis B Vaccines (1 of 3 - 19+ 3-dose series) 2014 Influenza Vaccine 04/24/2025 COVID-19 Vaccine (1 - 2023-2 5 season) 2025 HPV Vaccines (No Doses Required) Completed Pneumococcal Vaccine: Pediat mina (0-5 Years) and At-Risk Patients (6 to 49 Years) Aged Out No longer eligible b ased on patient's age to complete this topic Insurance [facility]
== END 2025-07-31 14:51 | disposition home or self-care (01) ==
PROVIDERS: PCP Internal Medicine; Visit Provider Physician Assistant
DX: S52.502A Unspecified fracture of the lower end of left radius, initial encounter for closed fracture (principal)

== ENCOUNTER → 2025-07-31 14:07 | Outpatient (BNV) | payer OTHER, SELFPAY | PROVIDERS: PCP Internal Medicine; Visit Provider Radiology Diagnostic Radiology | DX: S60.212A Contusion of left wrist, initial encounter (principal) | CPT/HCPCS: 73130 ==

== ENCOUNTER 2025-08-05 08:18 | Outpatient (AMB) | payer OTHER, SELFPAY ==
--- OUTSIDE RECORDS SUMMARY | 2025-08-05 08:27 | XMS_ITS | Clinical Summary ---
Author Organization [facility] Address [address] [place] [address] Care Team Providers Care Die Cleaner Name Role Phone Unavailable Primary Care Provider Unavailabl e Allergies No known active allergies Medications fluticasone (FloNASE) 50 mcg/spray nasal sprayIndication s:Hypertrophy of nasal turbinates 2 sprays into each nostril 2 times a day. 1 each 3 02/02/2025 Active Active Problems No known active problems Encounters Date Type Department Care Team Description 05/11/2025 7:45 AM EDT Office Visit [facility] [address], [place] [address] Wilbert Stewart MD Deviated nasal [...] patient's age to complete this topic Insurance [facility]
--- NOTE | 2025-08-05 08:40 | MHC.OFFVIS ---
Vital Signs 08/05/25 08:45 Height 6 ft Weight 196 lb BMI 26.6 Intake Visit Reasons: FC-FC of the lower end of left radius-WC 07/31/25 Intake Note: right hand dominant male who presents today for a fracture care visit for his left wrist W/C injury DOI 07/31/25. 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 Patient was on top of a first story house when he slipped and fell 6-8 feet off the roof onto the ground. Patient believes he fell onto his outstretched left hand. Seen at urgent acre where he was given a thumb spica brace to wear. States he was not sure if there is a fracture. He is currently experiencing tingling and numbness in all his fingers that he did not have before his injury. Allergies No Known Allergies (No Known Allergies*) Allergy (Verified 08/05/25 08:43) HPI HPI FC-FC of the lower end of left radius-WC 07/31/25: Details: Dennys is a 29 year old right hand dominant man who presents for a left forearm fracture S/P fall off a roof, DOI: 07/31/25. 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 He was seen at urgent care and given a thumb spica splint. He complains of pain in his wrist and occasional tingling in all is digits. The tingling is new following his injury. [facility] Medical History (Updated 07/31/25 @ 14:51 by Meka Gonsales PA-C) Encounter for routine adult physical exam with abnormal findings Lumbar back pain with radiculopathy affecting right lower extremity Surgical History (Updated 08/05/25 @ 08:44 by CECILIA Tapia) History of repair of anterior cruciate ligament of left knee No pertinent past surgical history Family History Father Substance use disorder Mother Substance use disorder Maternal Aunt Substance use disorder Maternal Uncle Substance use disorder Paternal Aunt Substance use disorder Paternal Uncle Substance use disorder Social History (Updated 08/05/25 @ 08:45 by CECILIA Tapia) Housing: House Patient Tobacco Use Status: Never used Tobacco e-Cigarette/Vaping Use: Never Used Substance Use Type: Marijuana service: No Current occupational status: employed Current occupation: right / [employer] Cognitive needs: No Hearing needs: No Vision needs: No Review of Systems Const All systems reviewed & are unremarkable except as noted in HPI and below Physical Exam Vital Signs: BMI result Body Mass Index 26.6 Const General: cooperative, healthy appearing and no acute distress Orientation/consciousness: patient oriented x3 HEENT Head: Yes normocephalic and Yes atraumatic Eyes EOM: EOMs intact bilaterally Resp Effort & Inspection: normal respiratory effort and able to speak in complete sentences Cardio Jugular venous distension: no JVD Skin General skin exam: turgor normal Rashes: no rashes Neuro General: patient oriented x3 Extrem Other: Evaluation of Left Upper Extremity: The patient is alert, oriented, and in no acute distress Neuro: Median, Ulnar, Radial nerves motor and sensory intact and sensation is normal to the tips of all digits Vascular: Cap refill brisk ROM: He can make a fist and extend all his digits Skin: No lacerations or abrasions or evidence of open fracture General: No Erythema or evidence of infection. Swelling, & ecchymosis to the volar forearm Tender about the distal radius No tenderness about the elbow or with proximal forearm squeeze No tenderness over the scaphoid tubercle Radiographs: 3 views of the left wrist were taken and viewed by me today in clinic. They show a distal radius fracture, intra-articular but non-displaced, with intra-articular fractures seen on PA, lateral, & oblique views. No step off Psych Appearance: grossly normal Affect: normal affect Attitude: cooperative Assessment & Plan Assessment & Plan (1) Left radial fracture: Comment: Radiology reveals a possible nondisplaced fracture versus prominent trabecular pattern in the distal radius. CT imaging is recommended. Patient will be referred to orthopedics however patient is aware he must go through his HR department for workman's compensation approval. Code(s): S52.92XA - Unspecified fracture of left forearm, initial encounter for closed fracture Category: Medical Qualifiers: Encounter type: initial encounter Fracture morphology: unspecified fracture morphology Fracture type: closed Radius location: distal Qualified Code(s): S52.502A - Unspecified fracture of the lower end of left radius, initial encounter for closed fracture Plan Assessment & Plan: 1. Left distal radius fracture, S/P fall From a roof, DOI: 07/31/25 This is a workplace injury I educated him about this condition I discussed operative and non-operative treatment options This will be managed conservatively in a cast. He was sent out today in his velcro thumb spica splint, to be worn like a cast for the next week I discussed activity modifications, he is to lift nothing heavier than a cellphone for the next 6 weeks. 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 Depending on fracture alignment we may need to proceed with surgery. If not, anticipate placement in a short arm cast for 3 weeks. Scribed for Gayla Stern MD by Boyd Escamilla, medical receptionist, on 08/05/25 at 9:15 AM, EST. Orders: Orders XR wrist LT min 3V Today M25.532 - Pain in left wrist Coding Level of Care Code New Pt Level 3 (79242) Diagnoses Closed fracture of distal end of left radius, unspecified fracture morphology, initial encounter S52.502A Encounter type: initial encounter Fracture morphology: unspecified fracture morphology Fracture type: closed Radius location: distal
[2025-08-05 08:45] VITALS: BMI 26.6
== END 2025-08-05 09:13 | disposition home or self-care (01) ==
LOC: HO.HOS 08:19
PROVIDERS: PCP Internal Medicine; Visit Provider Orthopaedic Surgery
DX: S52.502A Unspecified fracture of the lower end of left radius, initial encounter for closed fracture (principal)
CPT/HCPCS: 99203

== ENCOUNTER → 2025-08-05 08:21 | Outpatient (BNV) | payer OTHER, SELFPAY | PROVIDERS: Visit Provider Radiology Diagnostic Ultrasound | DX: M25.532 Pain in left wrist (principal) | CPT/HCPCS: 73110 ==

== ENCOUNTER 2025-08-05 14:22 | Outpatient (REF) | payer OTHER, SELFPAY ==
--- NOTE | ~2025-08-05 | XR_ITS ---
EXAMINATION: XR WRIST, LEFT CLINICAL INFORMATION: M25.532 - Pain in left wrist COMPARISON: X-ray 07/31/2025 TECHNIQUE: PA, lateral, and oblique views of the left wrist. FINDINGS: Redemonstrated is a longitudinally oriented lucency in the region of the sigmoid notch of the distal radius extending to the articular surface. Redemonstrated longitudinal lucency in the central region of the distal radius metaphysis extending to the articular surface. No significant callus/new bone formation. Redemonstrated bony exostosis in the region of the ulnar side of the distal radial metaphysis. Bony alignment is anatomic. Scapholunate distance is maintained. No suspicious findings otherwise identified. XR/XR wrist LT min 3V IMPRESSION: Possible nondisplaced fracture in the distal radius. Findings similar to previous. Clinically correlate. CT evaluation as clinically indicated. Electronically signed by: Albaro Bliss MD 08/05/2025 03:05 PM MIKE
--- OUTSIDE RECORDS SUMMARY | 2025-08-06 17:47 | XMS_ITS | Clinical Summary ---
Author Organization [facility] Address [address] [place] [address] Care Team Providers Care Business [employer] Dean Name Role Phone Unavailable Primary Care Provider Unavailabl e Allergies No known active allergies Medications fluticasone (FloNASE) 50 mcg/spray nasal sprayIndication s:Hypertrophy of nasal turbinates 2 sprays into each nostril 2 times a day. 1 each 3 02/02/2025 Active Active Problems No known active problems Encounters Date Type Department Care Team Description 05/11/2025 7:45 AM EDT Office Visit [facility] [address], [place] [address] Wilbert Stewart MD Deviated nasal [...] patient's age to complete this topic Insurance [facility]
== END 2025-08-05 14:23 | disposition home or self-care (01) ==
LOC: HO.HOSX 14:22
PROVIDERS: Visit Provider Orthopaedic Surgery
DX: S52.92XA Unspecified fracture of left forearm, initial encounter for closed fracture (principal); W13.2XXA Fall from, out of or through roof, initial encounter
CPT/HCPCS: 73110; 99202

== ENCOUNTER 2025-08-12 08:30 | Outpatient (AMB) | payer OTHER, SELFPAY ==
[2025-08-12 08:45] VITALS: BMI 26.6
--- NOTE | 2025-08-12 08:45 | MHC.OFFVIS ---
Vital Signs 08/12/25 08:45 Height 6 ft Weight 196 lb BMI 26.6 Intake Visit Reasons: O/V W/C left radius-DOI 07/31/25 Intake Note: Dennys 89 yr old right hand dominant male who presents today for a fracture care visit for his left wrist W/C injury DOI 07/31/25. 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 At his last visit with Dr Stern, he was sent out with a velcro thumb spica splint, to be worn like a cast for the next week Discussed activity modifications, he is to lift nothing heavier than a cellphone for the next 6 weeks. He should also avoid any heavy impact activities, falls, or sports activities for the next 6 weeks. He ia aware to perform gentle ROM exercises at home, he was given a note to return to work on light duty with a 1lb weight limit for the next 6 weeks Today he is here to discuss surgical intervention or anticipate placement in a short arm cast for 3 weeks. States he has little pain when he removes his brace and with certain twisting motion of wand/wrist. Allergies No Known Allergies (No Known Allergies*) Allergy (Verified 08/05/25 08:43) HPI HPI O/V W/C left radius-DOI 07/31/25: Details: Dennys is a 29 year old right hand dominant man who presents for a left forearm fracture S/P fall off a roof, DOI: 07/31/25. 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 We placed him in a Velcro wrist splint to be worn like a cast and are having him follow up today with repeat radiographs to assure there has been no displacement of the fracture. Today he is here to discuss surgical intervention or anticipate placement in a short arm cast for 3 weeks. He reports his swelling has resolved and pain is mild. 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 COUNT INCLUDES [facility] Medical History (Updated 07/31/25 @ 14:51 by Meka Gonsales PA-C) Encounter for routine adult physical exam with abnormal findings Lumbar back pain with radiculopathy affecting right lower extremity Surgical History History of repair of anterior cruciate ligament of left knee No pertinent past surgical history Family History Father Substance use disorder Mother Substance use disorder Maternal Aunt Substance use disorder Maternal Uncle Substance use disorder Paternal Aunt Substance use disorder Paternal Uncle Substance use disorder Social History Housing: House Patient Tobacco Use Status: Never used Tobacco e-Cigarette/Vaping Use: Never Used Substance Use Type: Marijuana service: No Current occupational status: employed Current occupation: right / [employer]. [employer] Cognitive needs: No Hearing needs: No Vision needs: No Physical Exam Vital Signs: BMI result Body Mass Index 26.6 Extrem Other: The patient was alert oriented and in no acute distress. Normal sensation to all digits. He can make a fist and extend all of his digits without difficulty He is most tender to palpation over the distal radius. DRUJ stable. No tenderness about the elbow. Swelling has improved some and ecchymosis is resolving. Radiographs three views of the right wrist were taken today and reviewed by me today in clinic. Again we see this complex intra-articular fracture that is nondisplaced. There has been no displacement at the fracture sites. Office Procedures AMB Fracture Care Details: Fracture care distal radius [id number] Fracture Billing Code: Fracture Billing Code Assessment & Plan Assessment & Plan (1) Left radial fracture: Comment: Radiology reveals a possible nondisplaced fracture versus prominent trabecular pattern in the distal radius. CT imaging is recommended. Patient will be referred to orthopedics however patient is aware he must go through his HR department for workman's compensation approval. Code(s): S52.92XA - Unspecified fracture of left forearm, initial encounter for closed fracture Category: Medical Qualifiers: Encounter type: initial encounter Fracture morphology: unspecified fracture morphology Fracture type: closed Radius location: distal Qualified Code(s): S52.502A - Unspecified fracture of the lower end of left radius, initial encounter for closed fracture Plan 1. Left distal radius fracture, intra-articular Fall From a roof, DOI: 07/31/25 This is a workplace injury I educated him about this condition We discussed operative and non operative treatment options. Now about 2 weeks post injury with no displacement of the fracture site. We are therefore going to proceed with cast treatment. He was placed in a short-arm cast today. I discussed activity modifications, he is to lift nothing heavier than a cellphone for the next 4 weeks. 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 It sounds like they have had him doing were administrative work. He will follow up in 3-4 weeks with new radiographs three views of the left wrist Scribed for Gayla Stern MD by Pavithra Granados medical insurance biller, on 08/12/25 at 9:47 AM, EST. Orders: Orders XR wrist LT min 3V Today M25.532 - Pain in left wrist Coding Level of Care Code Est Pt Level 4 (63585) Diagnoses Closed fracture of distal end of left radius, unspecified fracture morphology, initial encounter S52.502A Encounter type: initial encounter Fracture morphology: unspecified fracture morphology Fracture type: closed Radius location: distal CPT Codes Fracture Care - Fracture Billing Code: Fracture Billing Code ([id number])
--- OUTSIDE RECORDS SUMMARY | 2025-08-12 16:16 | XMS_ITS | Clinical Summary ---
Author Organization [facility] Address [address] [place] [address] Care Team Providers Care Line Assembler Aircraft Name Role Phone Unavailable Primary Care Provider Unavailabl e Allergies No known active allergies Medications fluticasone (FloNASE) 50 mcg/spray nasal sprayIndication s:Hypertrophy of nasal turbinates 2 sprays into each nostril 2 times a day. 1 each 3 02/02/2025 Active Active Problems No known active problems Social History Tobacco Use Types Packs/Day Years [...] series) 2014 Influenza Vaccine 04/24/2025 COVID-19 Vaccine (2023-2 5 season) 2025 HPV Vaccines (No Doses Required) Completed Pneumococcal Vaccine: Pediat mina (0-5 Years) and At-Risk Patients (6 to 49 Years) Aged Out No longer eligible b ased on patient's age to complete this topic [place] [address] [place] [address]
== END 2025-08-12 10:08 | disposition home or self-care (01) ==
LOC: HO.HOS 08:30
PROVIDERS: PCP Internal Medicine; Visit Provider Orthopaedic Surgery
DX: S52.502A Unspecified fracture of the lower end of left radius, initial encounter for closed fracture (principal)
CPT/HCPCS: 25600; 99214

== ENCOUNTER → 2025-08-12 08:32 | Outpatient (BNV) | payer OTHER, SELFPAY | PROVIDERS: Visit Provider Radiology Diagnostic Radiology | DX: M25.532 Pain in left wrist (principal) | CPT/HCPCS: 73110 ==

== ENCOUNTER 2025-08-12 10:42 | Outpatient (REF) | payer OTHER, SELFPAY ==
--- NOTE | ~2025-08-12 | XR_ITS ---
EXAMINATION: XR WRIST, LEFT CLINICAL INFORMATION: M25.532 - Pain in left wrist COMPARISON: August 05, 2025. TECHNIQUE: PA, lateral, and oblique views of the left wrist. FINDINGS: Inadequate collimation of the left wrist. There is no callus formation or sclerosis along the lucency/fracture distal epiphysis and metaphysis of the radius. The carpal bones are intact with normal alignment. The metacarpal bones are intact. The distal ulna is intact. XR/XR wrist LT min 3V IMPRESSION: No callus formation or periosteal bone reaction. Electronically signed by: Gian Angel MD 08/12/2025 08:51 AM EST
== END 2025-08-12 10:43 | disposition home or self-care (01) ==
LOC: HO.HOSX 10:42
PROVIDERS: Visit Provider Orthopaedic Surgery
DX: S52.502A Unspecified fracture of the lower end of left radius, initial encounter for closed fracture (principal); W13.2XXA Fall from, out of or through roof, initial encounter
CPT/HCPCS: 25600; 73110; 99212

== ENCOUNTER 2025-09-09 10:21 | Outpatient (REF) | payer OTHER, SELFPAY ==
--- NOTE | ~2025-09-09 | XR_ITS ---
EXAMINATION: XR WRIST, LEFT CLINICAL INFORMATION: M25.532 - Pain in left wrist COMPARISON: None available. TECHNIQUE: PA, lateral, and oblique views of the left wrist. FINDINGS: Linear lucencies/fracture in the distal radial metaphysis and epiphysis, appearing similar to previous. No significant callus formation is identified. Radiocarpal alignment is maintained. Upper alignment is maintained. No new acute fractures identified. XR/XR wrist LT min 3V IMPRESSION: No significant callus/new bone formation identified. Electronically signed by: Albaro Bliss MD 09/09/2025 03:29 PM EST
== END 2025-09-09 10:22 | disposition home or self-care (01) ==
LOC: HO.HOSX 10:21
PROVIDERS: Visit Provider Orthopaedic Surgery
DX: Z47.89 Encounter for other orthopedic aftercare (principal); S52.502D Unspecified fracture of the lower end of left radius, subsequent encounter for closed fracture with routine healing; W13.2XXD Fall from, out of or through roof, subsequent encounter
CPT/HCPCS: 73110

== ENCOUNTER 2025-09-09 10:21 | Outpatient (AMB) | payer OTHER, SELFPAY ==
--- NOTE | 2025-09-09 10:46 | A.OFFVIS_ITS ---
Vital Signs 09/09/25 10:50 Height 6 ft Weight 196 lb BMI 26.6 Intake Visit Reasons: O/V W/C left radius-DOI 07/31/25 Intake Note: Dennys 30 yr old right hand dominant male who presents today for a follow up visit for his left wrist W/C injury DOI 07/31/25. 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 At his last visit he was placed in a short arm cast and was advise to keep cast clean and dry. Xrays updated in office. Patient states he has no pain just discomfort. Allergies No Known Allergies (No Known Allergies*) Allergy (Verified 09/09/25 10:49) HPI HPI O/V W/C left radius-DOI 07/31/25: Details: Dennys is a 29 year old right hand dominant man who presents for a left forearm fracture S/P fall off a roof, DOI: 07/31/25. 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 He ays he is doing well and denies any pain. 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 [facility] Medical History (Updated 07/31/25 @ 14:51 by Meka Gonsales PA-C) Encounter for routine adult physical exam with abnormal findings Lumbar back pain with radiculopathy affecting right lower extremity Surgical History History of repair of anterior cruciate ligament of left knee No pertinent past surgical history Family History Father Substance use disorder Mother Substance use disorder Maternal Aunt Substance use disorder Maternal Uncle Substance use disorder Paternal Aunt Substance use disorder Paternal Uncle Substance use disorder Social History Housing: House Patient Tobacco Use Status: Never used Tobacco e-Cigarette/Vaping Use: Never Used Substance Use Type: Marijuana service: No Current occupational status: employed Current occupation: right / [employer] Cognitive needs: No Hearing needs: No Vision needs: No Review of Systems Const All systems reviewed & are unremarkable except as noted in HPI and below Physical Exam Vital Signs: BMI result Body Mass Index 26.6 Const General: no acute distress and alert Orientation/consciousness: patient oriented x3 Neuro General: patient oriented x3 Extrem Other: Evaluation of Right Upper Extremity: The patient is alert, oriented, and in no acute distress Neuro: Median, Ulnar, Radial nerves motor and sensory intact and sensation is normal to the tips of all digits Vascular: Cap refill brisk ROM: He can make a fist and extend all his digits Full pronation ~60 degrees Supination Fracture nontender Radiographs: 3 views of the right wrist were taken and viewed by me today in clinic. They show this complex intra-articular fracture that is nondisplaced. There has been no displacement at the fracture sites, and good evidence of interval bony healing Psych Appearance: grossly normal Affect: normal affect Attitude: cooperative Assessment & Plan Assessment & Plan (1) Left radial fracture: Comment: Radiology reveals a possible nondisplaced fracture versus prominent trabecular pattern in the distal radius. CT imaging is recommended. Patient will be referred to orthopedics however patient is aware he must go through his HR department for workman's compensation approval. Code(s): S52.92XA - Unspecified fracture of left forearm, initial encounter for closed fracture Category: Medical Qualifiers: Encounter type: initial encounter Fracture morphology: unspecified fracture morphology Fracture type: closed Radius location: distal Qualified Code(s): S52.502A - Unspecified fracture of the lower end of left radius, initial encounter for closed fracture Plan 1. Left distal radius fracture, intra-articular Fall From a roof, DOI: 07/31/25 This is a workplace injury Managed non operatively in a cast I educated him about this condition He was fitted for a velcro wrist splint, to be worn when out of the house with daily activities for the next 4 weeks. He will remove this at home I discussed activity modifications, he is to use his hand for lightweight activities and slowly increase as tolerated over the next few weeks. 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 He will follow up in 4-5 weeks for a ROM check, no X-rays. Anticipate return to full duty. Scribed for Gayla Stern MD by Boyd Escamilla, medical billing coordinator, on 09/09/25 at 10:50 AM, EST. Orders: Orders XR wrist LT min 3V Today M25.532 - Pain in left wrist Coding Level of Care Code Global (22202) Diagnoses Closed fracture of distal end of left radius, unspecified fracture morphology, initial encounter S52.502A Encounter type: initial encounter Fracture morphology: unspecified fracture morphology Fracture type: closed Radius location: distal
[2025-09-09 10:50] VITALS: BMI 26.6
--- OUTSIDE RECORDS SUMMARY | 2025-09-09 12:46 | XMS_ITS | Clinical Summary ---
Author Organization [facility] Address [address] [place] [address] Care Team Providers Care Car Runner Name Role Phone Unavailable Primary Care Provider [...] Care Team (Late st Contact Info) Description 09/30/2025 7:00 AM EST Appointment [facility] [address] [place] [address] Wilbert Stewart MD [address] [place], [place] [address] Health Maintenance Due Date Last Done Comments Hepatitis C Virus Screening 1995 HIV Screening 2008 DTaP/Tdap/Td Vaccines (1 - Tdap) 2014 Hepatitis B Vaccines (1 of 3 - 19+ 3-dose series) 2014 Influenza Vaccine 04/24/2025 COVID-19 Vaccine (1 - 2024-2 6 season) 2025 HPV Vaccines (No Doses Required) Completed Pneumococcal Vaccine: Pediat mina (0-5 Years) and At-Risk Patients (6 to 49 Years) Aged Out No longer eligible b ased on patient's age to complete this topic Insurance [facility]
== END 2025-09-09 11:08 | disposition home or self-care (01) ==
LOC: HO.HOS 10:22
PROVIDERS: Visit Provider Orthopaedic Surgery
DX: S52.502A Unspecified fracture of the lower end of left radius, initial encounter for closed fracture (principal)
CPT/HCPCS: 99024

== ENCOUNTER → 2025-09-09 10:30 | Outpatient (BNV) | payer OTHER, SELFPAY | PROVIDERS: Visit Provider Radiology Diagnostic Ultrasound | DX: M25.532 Pain in left wrist (principal) | CPT/HCPCS: 73110 ==